=== PATIENT | female | born 1970 | race African-American/Black ===

== ENCOUNTER 2021-01-01 14:22 | Inpatient (IN) | payer OTHER ==
[~2021-01-01] VITALS: Ht 160 cm; Wt 120.3 kg
[2021-01-01] MEDS ORDERED: MORPHINE SULFATE INJ 2 MG/ML SYR IV PRN (16:45)
[2021-01-01 17:02] LABS: BASOPHILS % 0.3 % (0.0-1.0); EOSINOPHILS # (AUTO) 0.3 (0.0-0.4); EOSINOPHILS % 2.2 % (0.0-6.0); HEMOGLOBIN 9.3 g/dL (12.0-16.0); LYMPHOCYTES # (AUTO) 3.5 (1.0-3.2); LYMPHOCYTES % 24.8 % (18.0-39.1); MEAN CORPUSCULAR HEMOGLOBIN 22.6 pg (28-32); MONOCYTES # (AUTO) 1.1 (0.2-0.8); NEUTROPHILS # (AUTO) 8.8 (2.1-6.9); NEUTROPHILS % 62.6 % (38.7-80.0); PLATELET COUNT 268 x10e3/uL (140-360); RED BLOOD COUNT 4.11 x10e6/uL (3.6-5.1); RED CELL DISTRIBUTION WIDTH 14.7 % (11.7-14.4)
[2021-01-01 17:09] LABS: INR 0.9; PROTHROMBIN TIME 12.7 seconds (11.9-14.5)
[2021-01-01 17:16] LABS: ALANINE AMINOTRANSFERASE 13 IU/L (0-55); ALBUMIN 3.4 g/dL (3.5-5.0); ALBUMIN/GLOBULIN RATIO 0.8 (0.8-2.0); ALKALINE PHOSPHATASE 80 IU/L (40-150); ANION GAP 15.7 mmol/L (8-16); BLOOD UREA NITROGEN 14 mg/dL (7-26); BUN/CREATININE RATIO 17 (6-25); CALCIUM 8.6 mg/dL (8.4-10.2); CARBON DIOXIDE 26 mmol/L (22-29); CHLORIDE 101 mmol/L (98-107); CREATININE, SERUM 0.82 mg/dL (0.57-1.11); EST GLOMERULAR FILTRATION RATE > 60 ML/MIN (60-); GLUCOSE 100 mg/dL (74-118); POTASSIUM 3.7 mmol/L (3.5-5.1); SODIUM 139 mmol/L (136-145)
[2021-01-01] MEDS: ENOXAPARIN SODIUM INJ 100 MG/ML SYR SC SCH (18:26)
[2021-01-01] MEDS: ONDANSETRON HCL INJ 2MG/ML 2ML 2 MG/ML VIAL IV PRN (19:34)
[2021-01-01] MEDS: MORPHINE SULFATE INJ 4 MG/ML INJ 1ML IV PRN (19:34)
[2021-01-02] MEDS: ENOXAPARIN SODIUM INJ 100 MG/ML SYR SC SCH ×2 (05:46→16:57)
[2021-01-02 05:56] LABS: BASOPHILS # (AUTO) 0.1 (0.0-0.1); BASOPHILS % 0.5 % (0.0-1.0); EOSINOPHILS # (AUTO) 0.4 (0.0-0.4); EOSINOPHILS % 3.9 % (0.0-6.0); HEMOGLOBIN 8.5 g/dL (12.0-16.0); LYMPHOCYTES # (AUTO) 3.3 (1.0-3.2); LYMPHOCYTES % 30.9 % (18.0-39.1); MEAN CORPUSCULAR HEMOGLOBIN 22.3 pg (28-32); MEAN CORPUSCULAR HGB CONC 30.4 g/dL (31-35); MEAN CORPUSCULAR VOLUME 73.3 fL (81-99); MONOCYTES % 9.5 % (4.4-11.3); NEUTROPHILS # (AUTO) 5.7 (2.1-6.9); NEUTROPHILS % 53.3 % (38.7-80.0); PLATELET COUNT 290 x10e3/uL (140-360); RED BLOOD COUNT 3.82 x10e6/uL (3.6-5.1); RED CELL DISTRIBUTION WIDTH 14.8 % (11.7-14.4)
[2021-01-02 06:10] LABS: ANION GAP 15.4 mmol/L (8-16); BLOOD UREA NITROGEN 17 mg/dL (7-26); BUN/CREATININE RATIO 19 (6-25); CALCIUM 8.2 mg/dL (8.4-10.2); CARBON DIOXIDE 25 mmol/L (22-29); CHLORIDE 106 mmol/L (98-107); CREATININE, SERUM 0.91 mg/dL (0.57-1.11); EST GLOMERULAR FILTRATION RATE > 60 ML/MIN (60-); GLUCOSE 98 mg/dL (74-118); POTASSIUM 4.4 mmol/L (3.5-5.1); SODIUM 142 mmol/L (136-145)
[2021-01-02] MEDS: SENNA-S TABLET PO SCH ×2 (09:00→16:57)
[2021-01-02 10:51] LABS: THYROID STIMULATING HORMONE 2.523 uIU/mL (0.350-4.940)
[2021-01-02] MEDS: HYDROCODONE/APAP 10MG-325MG TAB PO PRN ×2 (12:57→16:57)
[2021-01-02 13:17] VITALS: BP 124/76
[2021-01-02 13:19] VITALS: BP 124/76
[2021-01-02] MEDS ORDERED: VICODIN HP 10-1 EAC1 PO (15:45)
[2021-01-02] MEDS ORDERED: CITALOPRAM HBR20 MG PO (15:45)
[2021-01-02] MEDS ORDERED: VITAMIN D250 MC1 PO (15:45)
[2021-01-02] MEDS ORDERED: CLONAZEPAM1 MG PO (15:45)
[2021-01-02] MEDS ORDERED: MELOXICAM7.5 MG PO (15:45)
[2021-01-02] MEDS ORDERED: TRIAMCINOLONE A15 G1 TOP (15:45)
[2021-01-02] MEDS ORDERED: METHOCARBAMOL750 MG PO (15:45)
[2021-01-02] MEDS ORDERED: SOMA350 MG PO (15:45)
[2021-01-02 16:38] VITALS: BP 121/76
[2021-01-02] MEDS ORDERED: CYANOCOBALAMIN INJ 1,000 MCG/ML VIAL IM SCH (19:15)
[2021-01-02 19:30] VITALS: BP 125/74
[2021-01-02 21:00] VITALS: BP 125/74
[2021-01-02] MEDS ORDERED: IRON SUCROSE 200 MG in SODIUM CHLORIDE 0.9% 100 ML 100 ML IV SCH (22:45)
[2021-01-03] VITALS (8 sets, daily range): BP systolic 109–125; BP diastolic 51–75
[2021-01-03 04:57] LABS: BASOPHILS % 0.3 % (0.0-1.0); EOSINOPHILS # (AUTO) 0.6 (0.0-0.4); EOSINOPHILS % 5.5 % (0.0-6.0); HEMATOCRIT 27.8 % (34.2-44.1); HEMOGLOBIN 8.6 g/dL (12.0-16.0); LYMPHOCYTES # (AUTO) 2.9 (1.0-3.2); LYMPHOCYTES % 27.8 % (18.0-39.1); MEAN CORPUSCULAR HEMOGLOBIN 22.4 pg (28-32); MEAN CORPUSCULAR HGB CONC 30.9 g/dL (31-35); MEAN CORPUSCULAR VOLUME 72.4 fL (81-99); MONOCYTES # (AUTO) 0.9 (0.2-0.8); MONOCYTES % 9.2 % (4.4-11.3); NEUTROPHILS # (AUTO) 5.7 (2.1-6.9); NEUTROPHILS % 55.4 % (38.7-80.0); PLATELET COUNT 337 x10e3/uL (140-360); RED BLOOD COUNT 3.84 x10e6/uL (3.6-5.1); RED CELL DISTRIBUTION WIDTH 14.5 % (11.7-14.4)
[2021-01-03 05:23] LABS: ANION GAP 13.9 mmol/L (8-16); BLOOD UREA NITROGEN 15 mg/dL (7-26); BUN/CREATININE RATIO 20 (6-25); CALCIUM 8.4 mg/dL (8.4-10.2); CARBON DIOXIDE 26 mmol/L (22-29); CHLORIDE 103 mmol/L (98-107); CREATININE, SERUM 0.76 mg/dL (0.57-1.11); EST GLOMERULAR FILTRATION RATE > 60 ML/MIN (60-); GLUCOSE 104 mg/dL (74-118); POTASSIUM 3.9 mmol/L (3.5-5.1); SODIUM 139 mmol/L (136-145)
[2021-01-03] MEDS: ENOXAPARIN SODIUM INJ 100 MG/ML SYR SC SCH (06:15)
[2021-01-03] MEDS: SENNA-S TABLET PO SCH ×2 (09:36→16:37)
[2021-01-03] MEDS: HYDROCODONE/APAP 10MG-325MG TAB PO PRN (09:37)
[2021-01-03] MEDS: CYANOCOBALAMIN INJ 1,000 MCG/ML VIAL IM SCH (09:37)
[2021-01-03] MEDS: IRON SUCROSE 200 MG in SODIUM CHLORIDE 0.9% 100 ML 100 ML IV SCH (09:47)
[2021-01-03] MEDS: CYCLOBENZAPRINE HCL 10 MG TAB PO PRN (15:22)
[2021-01-03] MEDS: ENOXAPARIN SOD INJ 120 MG/0.8 ML SYR SC SCH (17:30)
[2021-01-03] MEDS ORDERED: FUROSEMIDE INJ 10 MG/ML 4 ML VIAL IV ONE (20:00)
[2021-01-03] MEDS: ONDANSETRON HCL INJ 2MG/ML 2ML 2 MG/ML VIAL IV PRN (20:24)
[2021-01-03] MEDS: MORPHINE SULFATE INJ 4 MG/ML INJ 1ML IV PRN (20:24)
[2021-01-04] VITALS (8 sets, daily range): BP systolic 107–125; BP diastolic 60–94
[2021-01-04 04:57] LABS: BASOPHILS % 0.3 % (0.0-1.0); EOSINOPHILS # (AUTO) 0.7 (0.0-0.4); EOSINOPHILS % 6.8 % (0.0-6.0); HEMATOCRIT 28.3 % (34.2-44.1); HEMOGLOBIN 8.6 g/dL (12.0-16.0); LYMPHOCYTES # (AUTO) 2.7 (1.0-3.2); LYMPHOCYTES % 27.1 % (18.0-39.1); MEAN CORPUSCULAR HEMOGLOBIN 22.3 pg (28-32); MEAN CORPUSCULAR HGB CONC 30.4 g/dL (31-35); MEAN CORPUSCULAR VOLUME 73.3 fL (81-99); MONOCYTES # (AUTO) 0.9 (0.2-0.8); NEUTROPHILS # (AUTO) 5.4 (2.1-6.9); NEUTROPHILS % 55.1 % (38.7-80.0); PLATELET COUNT 395 x10e3/uL (140-360); RED BLOOD COUNT 3.86 x10e6/uL (3.6-5.1); RED CELL DISTRIBUTION WIDTH 14.6 % (11.7-14.4)
[2021-01-04] MEDS: ENOXAPARIN SOD INJ 120 MG/0.8 ML SYR SC SCH ×2 (06:47→17:08)
[2021-01-04] MEDS: CYANOCOBALAMIN INJ 1,000 MCG/ML VIAL IM SCH (09:04)
[2021-01-04] MEDS: SENNA-S TABLET PO SCH ×2 (09:05→17:08)
[2021-01-04] MEDS: IRON SUCROSE 200 MG in SODIUM CHLORIDE 0.9% 100 ML 100 ML IV SCH (09:05)
[2021-01-04] MEDS: MORPHINE SULFATE INJ 4 MG/ML INJ 1ML IV PRN (17:09)
[2021-01-04] MEDS ORDERED: POTASSIUM CHLORIDE 20 MEQ TAB CR PO ONE (18:50)
[2021-01-04] MEDS ORDERED: FUROSEMIDE INJ 10 MG/ML 4 ML VIAL IV ONE (18:50)
[2021-01-04] MEDS: CYCLOBENZAPRINE HCL 10 MG TAB PO PRN (21:15)
[2021-01-05] VITALS (7 sets, daily range): BP systolic 100–155; BP diastolic 61–94
[2021-01-05] MEDS: ENOXAPARIN SOD INJ 120 MG/0.8 ML SYR SC SCH ×2 (05:04→16:52)
[2021-01-05 05:26] LABS: BASOPHILS % 0.3 % (0.0-1.0); EOSINOPHILS # (AUTO) 0.5 (0.0-0.4); HEMATOCRIT 28.4 % (34.2-44.1); HEMOGLOBIN 8.8 g/dL (12.0-16.0); LYMPHOCYTES % 21.4 % (18.0-39.1); MEAN CORPUSCULAR HEMOGLOBIN 22.7 pg (28-32); MEAN CORPUSCULAR VOLUME 73.4 fL (81-99); MONOCYTES % 10.5 % (4.4-11.3); NEUTROPHILS # (AUTO) 5.7 (2.1-6.9); PLATELET COUNT 445 x10e3/uL (140-360); RED BLOOD COUNT 3.87 x10e6/uL (3.6-5.1); RED CELL DISTRIBUTION WIDTH 14.6 % (11.7-14.4)
[2021-01-05 05:51] LABS: ANION GAP 12.9 mmol/L (8-16); BLOOD UREA NITROGEN 11 mg/dL (7-26); BUN/CREATININE RATIO 14 (6-25); CALCIUM 8.6 mg/dL (8.4-10.2); CARBON DIOXIDE 27 mmol/L (22-29); CHLORIDE 101 mmol/L (98-107); EST GLOMERULAR FILTRATION RATE > 60 ML/MIN (60-); GLUCOSE 115 mg/dL (74-118); POTASSIUM 3.9 mmol/L (3.5-5.1); SODIUM 137 mmol/L (136-145)
[2021-01-05] MEDS: IRON SUCROSE 200 MG in SODIUM CHLORIDE 0.9% 100 ML 100 ML IV SCH (09:00)
[2021-01-05] MEDS ORDERED: CYANOCOBALAMIN INJ 1,000 MCG/ML VIAL SC SCH (09:00)
[2021-01-05] MEDS ORDERED: POTASSIUM CHLORIDE 10MEQ EA PO ONE (09:30)
[2021-01-05] MEDS ORDERED: FUROSEMIDE INJ 10 MG/ML 4 ML VIAL IV ONE (09:30)
[2021-01-05] MEDS: SENNA-S TABLET PO SCH ×2 (09:48→16:52)
[2021-01-05] MEDS: HYDROCODONE/APAP 10MG-325MG TAB PO PRN ×2 (10:15→17:47)
[2021-01-05] MEDS: CYCLOBENZAPRINE HCL 10 MG TAB PO PRN (10:15)
[2021-01-05] MEDS ORDERED: ELIQUIS5 MG PO ×2 (18:45→18:48)
[2021-01-05] MEDS ORDERED: HEMOCYTE PLUS1 EACH PO (18:53)
[2021-01-05] MEDS ORDERED: B12 ACTIVE1000 MCG SL (18:53)
[2021-01-05] MEDS ORDERED: COLACE100 MG PO (18:58)
[2021-01-05] MEDS ORDERED: LASIX40 MG PO (18:59)
[2021-01-05] MEDS ORDERED: K DUR10 MEQ PO (19:01)
== END 2021-01-05 19:10 | disposition home or self-care (01) | DRG 300 ==
LOC: ER 14:40 → ERHOLD 17:13 → MED/SURG2 01-02 11:45
PROVIDERS: ADMIT Internal Medicine; ATTEND Internal Medicine
DX: I82.402 Acute embolism and thrombosis of unspecified deep veins of left lower extremity (principal); Z68.42 Body mass index [BMI] 45.0-49.9, adult; E66.01 Morbid (severe) obesity due to excess calories; Z20.822 Contact with and (suspected) exposure to COVID-19; Z98.84 Bariatric surgery status; M54.5 Low back pain; R26.2 Difficulty in walking, not elsewhere classified; D50.8 Other iron deficiency anemias; E64.8 Sequelae of other nutritional deficiencies; D51.8 Other vitamin B12 deficiency anemias; Z86.711 Personal history of pulmonary embolism; Z79.01 Long term (current) use of anticoagulants
CPT/HCPCS: 36415; 80048; 80053; 82607; 82728; 83540; 84443; 84466; 85025; 85610; 85730; 93005; 93306; 93971; 99284; J1650; J1756; J1940; J2270; J2405; J3420; U0002

== ENCOUNTER 2024-02-09 13:19 | Emergency (ER) | payer OTHER ==
[~2024-02-09] VITALS: Ht 160 cm; Wt 120.2 kg
[~2024-02-09 13:19] MED LIST: B12 ACTIVE1000 MCG SL; CITALOPRAM HBR20 MG PO; CLONAZEPAM1 MG PO; COLACE100 MG PO; ELIQUIS5 MG PO; HEMOCYTE PLUS1 EACH PO; K DUR10 MEQ PO; LASIX40 MG PO; MELOXICAM7.5 MG PO; METHOCARBAMOL750 MG PO; SOMA350 MG PO; TRIAMCINOLONE A15 G1 TOP; VICODIN HP 10-1 EAC1 PO; VITAMIN D250 MC1 PO
[2024-02-09 14:00] VITALS: PULSE 84; RESP 18; TEMP 98.6; O2SAT 100
[2024-02-09] MEDS: IBUPROFEN 600 MG TAB PO ONE (14:52)
[2024-02-09 16:12] LABS: BASOPHILS # (AUTO) 0.1 (0.0-0.1); BASOPHILS % 0.5 % (0.0-1.0); EOSINOPHILS # (AUTO) 0.4 (0.0-0.4); HEMATOCRIT 40.1 % (34.2-44.1); HEMOGLOBIN 12.1 g/dL (12.0-16.0); LYMPHOCYTES # (AUTO) 1.5 (1.0-3.2); LYMPHOCYTES % 15.1 % (18.0-39.1); MEAN CORPUSCULAR HEMOGLOBIN 22.8 pg (28-32); MEAN CORPUSCULAR HGB CONC 30.2 g/dL (31-35); MEAN CORPUSCULAR VOLUME 75.5 fL (81-99); MONOCYTES # (AUTO) 0.7 (0.2-0.8); MONOCYTES % 6.8 % (4.4-11.3); NEUTROPHILS # (AUTO) 7.1 (2.1-6.9); NEUTROPHILS % 73.3 % (38.7-80.0); PLATELET COUNT 328 x10e3/uL (140-360); RED BLOOD COUNT 5.31 x10e6/uL (3.6-5.1); RED CELL DISTRIBUTION WIDTH 14.9 % (11.7-14.4); WHITE BLOOD COUNT 9.69 x10e3/uL (4.8-10.8)
[2024-02-09 16:32] LABS: ALBUMIN 3.9 g/dL (3.5-5.0); ALBUMIN/GLOBULIN RATIO 0.9 (0.8-2.0); ANION GAP 15.7 mmol/L (8-16); CREATININE, SERUM 0.88 mg/dL (0.57-1.11); POTASSIUM 3.7 mmol/L (3.5-5.1); TOTAL PROTEIN 8.2 g/dL (6.5-8.1)
[2024-02-09 16:43] LABS: BILIRUBIN,TOTAL 0.4 mg/dL (0.2-1.2)
[2024-02-09] MEDS ORDERED: ELIQUIS5 MG PO (16:52)
== END 2024-02-09 18:15 | disposition home or self-care (01) ==
LOC: ER 13:59
DX: I82.411 Acute embolism and thrombosis of right femoral vein (principal); Z79.01 Long term (current) use of anticoagulants; G47.30 Sleep apnea, unspecified; Z98.84 Bariatric surgery status; Z79.899 Other long term (current) drug therapy
CPT/HCPCS: 36415; 80053; 85025; 93971; 99284